=== PATIENT | female | born 1945 | race Caucasian/White ===

== ENCOUNTER 2025-07-06 20:47 | Emergency (ER) | payer MEDICAID ==
[~2025-07-06] VITALS: Ht 157.5 cm; Wt 53.3 kg
[2025-07-06 20:58] VITALS: BP 159/66; PULSE 85; RESP 16; TEMP 36.7; O2SAT 98
[2025-07-06 23:17] VITALS: TEMP 98
[2025-07-06] MEDS: ACETAMINOPHEN 325MG TABLET PO ONE (23:17)
[2025-07-07 00:52] LABS: BASOPHILS % 0.6 % (0.0-2.0); EOSINOPHILS % 0.6 % (0.0-5.0); HEMATOCRIT. 36.1 % (36.0-48.0); HEMOGLOBIN. 11.7 g/dL (12.0-16.0); LYMPHOCYTES % 21.4 % (20.0-50.0); MEAN PLATELET VOLUME 8.1 fl (7.4-10.4); MONOCYTES % 8.1 % (2.0-8.0); NEUTROPHILS % 69.3 % (40.0-76.0); PLATELET 244 x1000/uL (130-400); RED BLOOD CELL COUNT 4.11 mill/uL (4.2-5.4); RED CELL DISTRIBUTION WIDTH 13.9 % (11.6-14.6)
[2025-07-07 01:08] LABS: CREATININE 1.0 mg/dL (0.6-1.0); UREA NITROGEN BLOOD 18.0 mg/dL (9-23)
[2025-07-07] MEDS ORDERED: TOPUD MT (01:34)
== END 2025-07-07 01:38 | disposition home or self-care (01) ==
LOC: ER 20:47
DX: S06.0XAA Concussion with loss of consciousness status unknown, initial encounter (principal); S50.812A Abrasion of left forearm, initial encounter; E11.9 Type 2 diabetes mellitus without complications; Z88.0 Allergy status to penicillin; W18.30XA Fall on same level, unspecified, initial encounter; Y93.89 Activity, other specified; Y92.89 Other specified places as the place of occurrence of the external cause; Y99.8 Other external cause status
CPT/HCPCS: 36415; 73090; 73564; 80048; 85025; 99284